=== PATIENT | male | born 1975 | race Two or more races ===

== ENCOUNTER 2025-07-10 11:11 | Emergency (ER) | payer OTHER ==
[~2025-07-10] VITALS: Ht 172.7 cm; Wt 80.7 kg
[2025-07-10] MEDS ORDERED: TOPROL XL50 M1 (11:18)
[2025-07-10] MEDS ORDERED: BUCAPSOL7.5 MG PO (11:19)
[2025-07-10 11:47] LABS: BASO % 0.5 % (0.1-1.2); EOS # 0.07 (0.04-0.54); EOS % 0.8 % (0.7-7.0); LYMPH # 2.29 (1.18-3.74); LYMPH % 27.8 % (19.3-53.1); MEAN PLATELET VOLUME 9.80 fl (9.4-12.4); MONO # 0.48 (0.24-0.82); MONO % 5.8 % (4.7-12.5); NEUT # 5.35 (1.56-6.13); NEUT % 64.9 % (34.0-71.1); RED CELL DISTRIBUTION WIDTH 12.2 % (11.6-14.4)
[2025-07-10] MEDS ORDERED: AMOX-CLAV 875-1 EACH PO (13:16)
[2025-07-10] MEDS ORDERED: INTESTINEX680 M1 PO (13:16)
[2025-07-10] MEDS ORDERED: KETO10TA2 PO (13:16)
[2025-07-10 13:21] VITALS: BP 130/60; O2SAT 100
== END 2025-07-10 13:22 | disposition home or self-care (01) ==
LOC: ER 13:06
PROVIDERS: General Practice
DX: M79.89 Other specified soft tissue disorders (principal); M79.641 Pain in right hand; I10 Essential (primary) hypertension